=== PATIENT | female | born 1950 | race Hispanic/Latino ===

== ENCOUNTER 2016-05-30 06:07 | Day surgery (SDC) | payer BC, OTHER ==
[~2016-05-30 06:07] MED LIST: ANCEF/STERILE WATER 2 GM/20 ML IV NR
[2016-05-30] MEDS ORDERED: NACL BACTERIOSTATIC INFILTRATI ONE (06:52)
[2016-05-30] MEDS ORDERED: ZOFRAN IV PRN (07:19)
[2016-05-30] MEDS ORDERED: PEPCID IV NR (07:19)
[2016-05-30] MEDS ORDERED: DILAUDID IV PRN (07:19)
[2016-05-30] MEDS ORDERED: TORADOL IV PRN (07:19)
--- NOTE | 2016-05-30 07:20 | Anesthesia Day of Surgery ---
Anesthesia Day of Surgery - Day of Surgery Patient Examined: Yes Patient H&P Reviewed: Yes Patient is NPO: Yes
[2016-05-30] MEDS ORDERED: SUBLIMAZE ONE (07:22)
[2016-05-30] MEDS ORDERED: DIPRIVAN 10 MG/ML IV ONE (07:22)
--- NOTE | 2016-05-30 07:23 | Anesthesia Consultation ---
Anesthesia Consult and Med Hx Date of service: 05/30/16 - Airway Anesthetic Teeth Evaluation: Bridges (upper and lower) ROM Head & Neck: Adequate (but reduced) Mental/Hyoid Distance: Adequate Mallampati Class: Class III Intubation Access Assessment: Probably Good - Pulmonary Exam CTA: Yes - Cardiac Exam Cardiac Exam: RRR - Pre-Operative Health Status ASA Pre-Surgery Classification: ASA3 Proposed Anesthetic Plan: General - Pre-Anesthesia Comment Pre-Anesthesia Comments: OA - Pulmonary Hx Smoking: No Hx Asthma: Yes (RAD) Hx Pneumonia: Yes (2014) Hx Sleep Apnea: No (HIGH RISK JIM) - Cardiovascular System Hx Hypertension: No (DENIES. HL) Hx Valvular Heart Disease: Yes (MVR) - Central Nervous System Hx Seizures: Yes (LAST ACTIVE 2013) Hx Psychiatric Problems: No - Gastrointestinal Hx Gastroesophageal Reflux Disease: Yes - Endocrine Hx Non-Insulin Dependent Diabetes: Yes - Other Systems Hx Alcohol Use: No Hx Substance Use: No Hx Cancer: No
[2016-05-30] MEDS ORDERED: XYLOCAINE MPF 2% ONE (07:24)
[2016-05-30] MEDS ORDERED: ZOFRAN ONE (07:27)
[2016-05-30] MEDS ORDERED: DECADRON ONE (07:27)
[2016-05-30] MEDS ORDERED: NACL 0.9% 100 ML ONE (07:57)
[2016-05-30] MEDS ORDERED: NEO SYNEPHRINE ONE (07:57)
[2016-05-30] MEDS ORDERED: ROBINUL ONE (07:57)
[2016-05-30] MEDS ORDERED: VERSED IV NR (08:00)
[2016-05-30] MEDS ORDERED: LACTATED RINGERS 1,000 ML IV SCH ×2 (08:00)
--- NOTE | 2016-05-30 08:23 | Post Operative Note ---
Pre-op diagnosis: r renal stones Post-op diagnosis: same Findings: as above Procedure: r eswl Anesthesia: BENJI Surgeon: CLARI NELSON Estimated blood loss: none Pathology: none Condition: stable Disposition: PACU
--- NOTE | 2016-05-30 08:24 | Discharge Summary ---
Short Stay Discharge Plan Activity: other (no straining ) Weight Bearing Status: Full Weight Bearing Diet: low fat, low cholesterol, low salt Special Instructions: other (inc fluids ) Follow up with: SB ROLAND MD [Primary Care Provider] - 7 Days CHAVEZ GOLDBERG MD [Staff Physician] - 7 Days
--- NOTE | 2016-05-30 08:29 | Operative Report ---
PREOPERATIVE DIAGNOSES: Right flank pain, right 8 mm lower pole stone. POSTOPERATIVE DIAGNOSES: Right flank pain, right 8 mm lower pole stone. PROCEDURE: Right in situ lithotripsy. SURGEON: Camilo Ramírez MD ANESTHESIA: General. FINDINGS: This is a woman with right flank pain, right renal stones, now presents for lithotripsy. All the risks and complications were discussed. DESCRIPTION OF PROCEDURE: The patient brought to the operating room and placed on the operating table. The stone was well localized, both the AP and oblique image. Shocks were begun at 1 kV and increased to maximum 5 kV. A total of 2500 shocks were given. The stone seemed to spread out. The patient tolerated the procedure well and brought to recovery in stable condition. JOB# [id number] NICOLAS/SHWETA
--- NOTE | 2016-05-30 08:59 | Post Anesthesia Evaluation ---
- Post Anesthesia Evaluation Patient Participated: Yes Airway Patent: Yes Stable Respiratory Function: Yes Nausea/Vomiting: No Temp > 96.8F: Yes Pain Manageable: Yes Adequeate Hydration: Yes Anesthesia Complications: No
[2016-05-30 09:27] VITALS: BP 137/82
--- NOTE | 2016-05-30 21:53 | Admit Criteria Form ---
Admission Criteria Documentation: AMBULATORY SURGERY EXCEPTION CRITERIA Ambulatory Surgery Exception Criteria ( Place 'X' for any and all applicable criteria): Surgery or procedure performed on ambulatory basis may require inpatient stay for[A] ANY ONE of the following(1)(2)(3)(4)(5)(6)(7)(8)(9): [X] I. A preoperative situation, condition, or finding that warrants inpatient stay as indicated by ANY ONE of the following: [] a) Inpatient care needed because of severity of a disease or condition rather than the surgery (eg, severe cardiac or respiratory disease, severe infection) (15) (16 ) (17) (18) [] b) Emergent procedure (eg, angioplasty for acute ischemia)(19) [] c) Complex surgical approach or situation as indicated by ANY ONE of the following(3): [] i) Open approach needed instead of usual endoscopic, transcatheter, or other less invasive procedure [] ii) Difficult approach because of previous operation [] iii) Airway monitoring required after open neck procedures(20)(21) [] iv) Large mass requiring unusually extensive dissection [] v) Additional complicating feature requiring inpatient care (eg, drain management)(22(23): [X] d) Major surgery in a pt with high anesthetic risk as indicated by ANY ONE of the following (2)(3)(5)(7)(8): [X] i) ASA risk class III or higher (severe systemic disease impairing function) [D] [] ii) Advanced age (eg, older than 85 years)(14)(24) [] iii) Symptomatic heart failure(25) [] iv) Symptomatic asthma or COPD(8)(21) [] v) Morbid obesity with hemodynamic or respiratory problems(20)( 21)(26)(27) [] vi) Obstructive sleep apnea(20)(21) [] vii) Former premature infants who are younger than 60 weeks [] viii) High risk for severe postoperative abnormalities (eg, severe postoperative hypocalcemia after parathyroidectomy for severe hyperparathyroidism)(27)( 28) [] ix) Unstable angina(25) [] e) Drug-related risk requiring inpatient stay as indicated by ANY ONE of the following(5)(10)(14)(32)(33) [] i) Procedure requires discontinuing drugs or other therapy (eg , antiarrhythmic medication, antiseizure medication), which necessitates inpatient observation or treatment.(18)(31) [] ii) Major surgery and high risk drug use as indicated by ANY ONE of the following: [] 1) Active abuse of cocaine or similar drug [] 2) Monoamine oxidase inhibitor use [] 3) Other drug identified as posing risk [] f) Inadequate outpatient care situation as indicated by ANY ONE of the following(5)(10)(14)(32)(33) [] i) Patient lives remote from medical facility and procedure has urgent complication potential, and temporary nearby residence cannot be arranged [] ii) Patient will have postprocedure incapacitation and inadequate assistance at home, or alternative level of care cannot be arranged. [] iii) Patient will have long general anesthesia or procedure side effect resolution time, and competent person to stay with patient on first postoperative night at home or alternative level of care cannot be arranged. []iv) Other inadequate outpatient situation that cannot be handled by other means [] II. A perioperative event, condition, or finding that warrants inpatient stay as indicated by ANY ONE of the following (1)(2)(3): [] a) Inadequate physiologic recovery: cardiovascular, respiratory, or hemodynamic status not normal or near preoperative baseline(18) [] b) Hemodynamic instability [] c) Patient not alert with near normal or baseline mental status [] d) Temperature not normal or as expected and not appropriate for outpatient treatment of condition [] e) Ambulatory or appropriate activity level status not yet achieved post procedure [E](34)(35)(36) [] f) Operative site not appropriate (eg, unexpected or excessive drainage or bleeding) [] g) Postoperative effects not resolved or adequately managed (eg, significant pain or vomiting not appropriate for outpatient or next level of care)(10)(12) [] h) Complicating features requiring inpatient care as indicated by ANY ONE of the following(37): [] i) Severe complications of procedure (eg, bowel injury, airway compromise, vascular injury,severe hemorrhage) [] ii) Extensive (eg, dissection far beyond usual scope of procedure ) or prolonged (eg, 120 minutes beyond usual) surgery needed requiring inpatient postoperative care [] iii) Conversion to an open or complex procedure that requires inpatient care (eg, open vs laparoscopic cholecystectomy, abdominal vs vaginal hysterectomy)(38) [] iv) Comorbid condition or test result identified during or post procedure that requires inpatient care (7) [] v) Malignant hyperthermia(30) [] vi) Other complicating feature requiring inpatient care(22)(23) Inpatient stay may be needed until ALL of the following are present (1)(2)(3)(4) (5)(6)(10)(14)(33)(40): []a) Physiologic recovery: cardiovascular, respiratory, and hemodynamic status normal or near preoperative baseline []b) Hemodynamic stability []c) Patient alert, with near normal or baseline mental status []d) Temperature appropriate: patient afebrile or temperature appropriate for outpt treatment of condition []e) Activity level appropriate: ambulatory or appropriate activity level post procedure []f) Operative site appropriate as indicated by ALL of the following: []i) Site dry or with expected drainage []ii) Any blood noted is as expected for procedure. []g) Postoperative effects resolved or managed as indicated by ALL of the following: []i) Pain management appropriate for outpatient (or next level of) care(10) []ii) Minimal nausea and vomiting: if present, successfully treated with oral medication(12) []iii) Headache, dizziness, or drowsiness (if present) are mild. []h) Voiding status acceptable as indicated by ANY ONE of the following: []i) Voiding spontaneously []ii) No voiding but instructions given for follow-up in 6 to 8 hours []iii) Urinary catheter in place, and instructions given for follow-up []i) Complicating features requiring inpatient care manageable at a lower level of care(37) []j) Comorbid conditions manageable at a lower level of care(37) The original [employer] content created by [employer] has been revised. The portions of the content which have been revised are identified through the use of italic text or in bold, and [facility] [place] Employee Benefit PlansStyle[employer] by [employer] has neither reviewed nor approved the modified material. All other unmodified content is copyright [employer]. Please see references footnoted in the original [employer] edition 2016 Admission Criteria Met: Yes
== END 2016-05-30 10:10 | disposition home or self-care (01) ==
LOC: OR 06:07
PROVIDERS: ATTEND Urology
DX: N20.0 Calculus of kidney (principal); I48.91 Unspecified atrial fibrillation; E11.9 Type 2 diabetes mellitus without complications; J45.909 Unspecified asthma, uncomplicated; K21.9 Gastro-esophageal reflux disease without esophagitis; Z90.710 Acquired absence of both cervix and uterus; Z96.652 Presence of left artificial knee joint; Z87.01 Personal history of pneumonia (recurrent); Z82.49 Family history of ischemic heart disease and other diseases of the circulatory system; Z84.1 Family history of disorders of kidney and ureter; Z83.3 Family history of diabetes mellitus; Z80.0 Family history of malignant neoplasm of digestive organs; Z80.1 Family history of malignant neoplasm of trachea, bronchus and lung
CPT/HCPCS: 50590; 82962; J0690; J1100; J2250; J2370; J2405; J2704; J3010; J7120